=== PATIENT | male | born 1945 | race Caucasian/White ===

== ENCOUNTER 2019-11-21 11:03 | Outpatient (RCR) | payer MEDICARE, MEDICAID, SELFPAY | END 2019-11-21 23:59 | disposition home or self-care (01) | LOC: ANHAUDIO 11:03 | PROVIDERS: PCP Internal Medicine; Visit Provider Internal Medicine | DX: Z46.1 Encounter for fitting and adjustment of hearing aid (principal) | CPT/HCPCS: 99199 ==

== ENCOUNTER 2020-04-06 13:36 | Outpatient (CLI) | payer MEDICARE, MEDICAID, SELFPAY | END 2020-04-06 13:37 | disposition home or self-care (01) | LOC: ANHAUDIO 13:39 | PROVIDERS: PCP Internal Medicine | DX: Z01.10 Encounter for examination of ears and hearing without abnormal findings (principal) | CPT/HCPCS: 99199 ==

== ENCOUNTER 2020-05-29 07:25 | Outpatient (RCR) | payer MEDICAID, SELFPAY | END 2020-05-29 23:59 | disposition home or self-care (01) | LOC: ANHAUDIO 07:25 | DX: Z46.1 Encounter for fitting and adjustment of hearing aid (principal) | CPT/HCPCS: 99199 ==

== ENCOUNTER 2020-06-04 12:31 | Outpatient (CLI) | payer MEDICARE, MEDICAID, SELFPAY | END 2020-06-04 12:32 | disposition home or self-care (01) | LOC: ANHBWCAUD 12:39 | DX: H90.3 Sensorineural hearing loss, bilateral (principal) | CPT/HCPCS: 92557; 92567 ==